=== PATIENT | female | born 1970 | race African-American/Black ===

== ENCOUNTER 2017-03-19 08:59 | Inpatient (IN) | payer OTHER ==
[~2017-03-19] VITALS: Ht 172.7 cm; Wt 62.1 kg
[2017-03-19] VITALS (7 sets, daily range): BP systolic 144–169; BP diastolic 9–110; PULSE 90–116; RESP 16–20; TEMP 96.8–99.3; O2SAT 98–100
--- NOTE | 2017-03-19 08:42 | HHI.HP ---
HPI Chief Complaint severe symptomatic anemia, admit prior to scheduled surgery for transfusion Date Seen: Mar 19, 2017 Time Seen: 10:30 Travel History International Travel<30 Days: No Contact w/Intl Traveler<30Days: No Known Affected Area: No History of Present Illness HPI 46 yo (h/o FT CD in 1995) presents for pre-admit, blood transfusion due to severe symptomatic anemia due to acute blood loss associated with enlarged leiomyomatous uterus and premenopausal menorrhagia. Pt is scheduled for total abdominal hysterectomy (CIRILO) and possible bilateral salpingo-oophorectomy (BSO) tomorrow, Monday03/20/17. Pt's hemoglobin has dropped over past year from 10.5 to 6.1 due to severely heavy bleeding, despite chronic OCP suppression ( although pt is known to be poorly compliant with physician instructions and medication use so unclear if actually taking). Pt has severely heavy painful cycles starting in August 2016. Had previously been seen and managed by me in 2015 with finding of large submucous myoma causing pain and bleeding, I removed myoma hysteroscopically 06/2016 but patient only had relief x 2 months. Since August 2016 pt states cycles "are like a faucet, I can't leave the house, it's interfering with my work, I woak a super pad ever 30 minutes on the heaviest day." Bleeds >14d/month and heavy for >10days. Over past month bleeding has been continuous. Pap negative last year, unable to tolerate endometrial biopsy in office but on office imaging new larger complete submucous myoma visualized. Pt complains of fatigue, bloating, tired all the time. Pt refused exam in office or repeat ultrasound imaging, to re-evaluate uterine size prior to surgery, last office sonogram dated 11/07/16 showed complete submucosal fibroid measuring 3.9 x 3.7 cm, adnexal regions within normal limits at that time. Pain in pelvis cramping midline with radiation to low back, 10/31. Currently bleeding today. History Past Medical History Narrative Medical chronic hypertension severe anemia secondary to acute blood loss (menorrhagia) uterine leiomyomas premenopausal menorrhagia Obstetric History Obstetric History G1 = FT CD @ 38 wks "no fluid, emergency " (1995) Past Surgical History Narrative Surgical cholecystectomy tubal ligation section 1995 hysteroscopy/myomectomy 07/04/2016 (myosure) Family History Narrative Family History hypertensive disorder - mother colon cancer - father heart disease - maternal & paternal grandmother Social History Alcohol Use: No Tobacco Use: No Substance Abuse: No Allergies-Medications (Allergen,Severity, Reaction): Uncoded Allergies: [facility] (Allergy, Severe, 05/21/09) Comments NKDA Home Meds Active Scripts Lisinopril 20 mg (Lisinopril 20 mg) 20 Mg Tab, 20 MG PO BID, #60 6 Refills Prov:Aure Hernandez MD 07/30/12 Metoprolol Tartrate 25 mg (Metoprolol Tartrate 25 mg) 25 Mg Tab, 25 MG PO BID, # 62 6 Refills Prov:Aure Hernandez MD 03/04/12 Reported Medications Miscellaneous (Vitamin B-12 Extended Rel) 1 000 Sub, 1 TAB SL DAILY, TAB 03/10/14 Green Tea (Camillia Sinensis) (Green Tea) 150 Mg Cap, 150 MG PO DAILY, CAP 03/10/14 Garlic (Garlic) Tab, 1 TAB PO DAILY, TAB 03/10/14 Review of Systems General / Constitutional: Other (fatigue), No: Fever, Weight Gain, Chills Eyes: No: Diploplia, Blurred Vision, Visual changes, Pain, Photophobia HENT: No: Headaches, Vertigo, Lightheadedness Cardiovascular: No: Irregular Rhythm, Chest Pain or Discomfort, Palpitations, Tachycardia, Syncope, Varicosities, Edema, Cyanosis Respiratory: No: Cough, Short of Breath, Other Gastrointestinal: Abdominal Pain (cramps), No: Nausea, Vomiting, Diarrhea Genitourinary: Pelvic Pain, Menorrhagia, Vaginal Bleeding (continuous menses), No: Decreased Urinary Output, Oliguria Musculoskeletal: No: Limited ROM, Weakness, Cramping, Edema, Pain Skin: No Rash, No Itching, No Dryness, No Lumps, No Change in Pigmentation, No Change in Nails, No Alopecia, No Lesions Neurologic: Weakness, No: Dizziness, Syncope, Focal Abnormalities, Coordination Problem, Headache, Slurred Speech, Seizures Psychiatric: No: Depression, Suicidal Ideations, Homicidal Ideation Endocrine: No: Heat Intolerance, Cold Intolerance, Polydipsia, Polyuria, Other Physical Exam Narrative GENERAL: Well-nourished, well-developed patient. Overweight. SKIN: Warm and dry. HEAD: Normocephalic and atraumatic. EYES: No scleral icterus. No injection or drainage. ENT: No nasal drainage noted. Mucous membranes pink. Airway patent. NECK: Supple, trachea midline. No JVD. CARDIOVASCULAR: Regular rate and rhythm without murmurs, gallops, or rubs. RESPIRATORY: Breath sounds equal bilaterally. No accessory muscle use. BREASTS: deferred. ABDOMEN/GI: Abdomen soft, TTP above symphysis c/w uterine fundus, bowel sounds present, no rebound, no guarding midline vertical scar from h/o delivery GENITOURINARY: deferred to exam under anesthesia in OR EXTREMITIES: No cyanosis or edema. BACK: Nontender without obvious deformity. No CVA tenderness. NEUROLOGICAL: Awake and alert. Motor and sensory grossly within normal limits. Five out of 5 muscle strength in all muscle groups. Normal speech. Caprini VTE Risk Assessment Caprini VTE Risk Assessment: No/Low Risk (score <= 1) Caprini Risk Assessment Model Point Value = 1 Point Value = 2 Point Value = 3 Point Value = 5 Age 41-60 Minor surgery BMI > 25 kg/m2 Swollen legs Varicose veins or History of unexplained or recurrent spontaneous Oral contraceptives or hormone replacement Sepsis (< 1 month) Serious lung disease, including pneumonia (< 1 month) Abnormal pulmonary function Acute myocardial infarction Congestive heart failure (< 1 month) History of inflammatory bowel disease Medical patient at bed rest Age 61-74 Arthroscopic surgery Major open surgery (> 45 min) Laparoscopic surgery (> 45 min) Malignancy Confined to bed (> 72 hours) Immobilizing plaster cast Central venous access Age >= 75 History of VTE Family history of VTE Factor V Leiden Prothrombin [id number] Lupus anticoagulant Anticardiolipin antibodies Elevated serum homocysteine Heparin-induced thrombocytopenia Other congenital or acquired thrombophilia Stroke (< 1 month) Elective arthroplasty Hip, pelvis, or leg fracture Acute spinal cord injury (< 1 month) Prophylaxis Regimen Total Risk Factor Score Risk Level Prophylaxis Regimen 0-1 Low Early ambulation 2 Moderate Order ONE of the following: *Sequential Compression Device (SCD) *Heparin 5000 units SQ BID 3-4 Higher Order ONE of the following medications: *Heparin 5000 units SQ TID *Enoxaparin/Lovenox 40 mg SQ daily (WT < 150 kg, CrCl > 30 mL/min) *Enoxaparin/Lovenox 30 mg SQ daily (WT < 150 kg, CrCl > 10-29 mL/min) *Enoxaparin/Lovenox 30 mg SQ BID (WT < 150 kg, CrCl > 30 mL/min) AND/OR *Sequential Compression Device (SCD) 5 or more Highest Order ONE of the following medications: *Heparin 5000 units SQ TID (Preferred with Epidurals) *Enoxaparin/Lovenox 40 mg SQ daily (WT < 150 kg, CrCl > 30 mL/min) *Enoxaparin/Lovenox 30 mg SQ daily (WT < 150 kg, CrCl > 10-29 mL/min) *Enoxaparin/Lovenox 30 mg SQ BID (WT < 150 kg, CrCl > 30 mL/min) AND *Sequential Compression Device (SCD) Data Data Vital Signs Reviewed: Yes Assessment/Plan Problem List: (1) Anemia associated with acute blood loss ICD Codes: D62 - Acute posthemorrhagic anemia Status: Acute (2) Premenopausal menorrhagia ICD Codes: N92.4 - Excessive bleeding in the premenopausal period Status: Acute (3) Uterine leiomyoma ICD Codes: D25.9 - Leiomyoma of uterus, unspecified Status: Chronic (4) Enlarged uterus ICD Codes: N85.2 - Hypertrophy of uterus Status: Chronic Assessment and Plan 46 yo admit 1 day prior to scheduled surgery for blood transfusion due to severe acute anemia in setting of premenopausal menorrhagia due to enlarged, leiomyomatous uterus 1) severe anemia: Pt's Hgb has decreased over past 12 months from 10.5 > 6.1, despite continuous OCP suppression pt continues to have severe heavy continuous menses; will crossmatch for 4 units, transfuse 2 units today & have 2 units ready for intraop/postop use if necessary; r/b/a of transfusion d/w pt in office and consents signed on 03/15/17 2) premenopausal menorrhagia/enlarged leiomyomatous uterus: scheduled total abdominal hysterectomy, possible bilateral salpingo-oophorectomy on 03/20/17. Pt to get transfusion today, will be NPO after midnight in preparation for surgery. R/b/a of surgery d/w pt in detail, consents signed, all questions answered 3) mildly elevated creatinine: this is chronic for pt, records reviewed from PCP , stable from last year, 1.06; pt has outpt f/u with PCP for continued care; is chronic hypertensive, does not always take medication as prescribed 4) chronic hypertension: continue home meds & monitor closely while inpt 5) PPX: will plan SCDs while in bed 6) dispo: suspect discharge on POD#1 or 2, surgery scheduled tomorrow 03/20/17 Discharge Planning 1-2 days postop Ayah Hutchison MD Mar 19, 2017 08:42
[~2017-03-19 08:59] MED LIST: GARL500T PO; GREE150C PO; LISI-363 PO; METO25 PO; VITA100020 SL
[2017-03-19] MEDS ORDERED: LACTATED RINGER'S 1000 ML INJ 1,000 ML IV SCH (12:00)
[2017-03-19] MEDS ORDERED: ceFAZolin 1,000 MG/NS 100 ML IV SCH ×2 (20:00)
[2017-03-19 22:54] LABS: BLOOD, URINE SMALL (NEG); COMMENT (UR) CULT NOT INDICATED; CULTURE IF INDICATED CULT NOT INDICATED; GLUCOSE,URINE NEG (NEG); HYALINE CAST, URINE 1 /lpf (RARE); KETONE, URINE NEG (NEG); MUCUS URINE FEW /lpf (OCC); NITRITE,URINE NEG (NEG); SQUAMOUS EPITHELIAL CELL URINE 10 /hpf (0-5); TRANSITIONAL EPI CELLS, URINE 1 /hpf; URINE COLOR YELLOW (YELLW/STRAW)
[2017-03-20] VITALS: BP 149/97; PULSE 97; RESP 18; TEMP 98.3; O2SAT 97
[2017-03-20 04:00] VITALS: BP 152/92; PULSE 87; RESP 18; TEMP 98.5; O2SAT 95
[2017-03-20 06:07] LABS: AUTOMATED NEUTROPHIL # 4.2 TH/MM3 (1.8-7.7); BASOPHIL # 0.1 TH/MM3 (0-0.2); EOSINOPHIL # 0.2 TH/MM3 (0-0.4); EOSINOPHIL % 3.4 % (0.0-4.0); HEMATOCRIT 27.8 % (35.0-46.0); HEMO FLAGS DIFF FINAL; LYMPH % 24.3 % (9.0-44.0); LYMPHOCYTE # 1.6 TH/MM3 (1.0-4.8); MEAN CELL VOLUME 77.1 FL (80.0-100.0); MEAN CORPUSCULAR HEMOGLOBIN 23.1 PG (27.0-34.0); MONO % 6.8 % (0.0-8.0); NEUT % 64.5 % (16.0-70.0); PLATELET COUNT 213 TH/MM3 (150-450); RED CELL DISTRIBUTION WIDTH 24.6 % (11.6-17.2); WHITE BLOOD COUNT 6.5 TH/MM3 (4.0-11.0)
[2017-03-20 06:18] LABS: MEAN CORPUSCULAR HGB CONC 29.9 % (32.0-36.0)
[2017-03-20] MEDS ORDERED: SODIUM CHLORID 0.9% 500 ML IV PRN (06:30)
[2017-03-20] MEDS ORDERED: LACTATED RINGER'S 1000 ML IV PRN (06:30)
[2017-03-20] MEDS ORDERED: CHLORHEXIDINE GLUCONATE 2 % 1 PACK (2 CLOTHS) TOPICAL PRN (06:30)
[2017-03-20] MEDS ORDERED: POVIDONE IODINE 5% (ANTISEPSIS KIT) 4 APPLICATIONS EACH NARE PRN (06:30)
[2017-03-20 06:40] LABS: ALT (GPT) 16 U/L (10-53); ANION GAP 8 MEQ/L (5-15); AST (GOT) 11 U/L (15-37); BICARBONATE 25.4 MEQ/L (21.0-32.0); BLOOD UREA NITROGEN 9 MG/DL (7-18); CHLORIDE 109 MEQ/L (98-107); GLOMERULAR FILTRATION RATE 76 ML/MIN (>89); POTASSIUM 3.2 MEQ/L (3.5-5.1); SODIUM (NA) 142 MEQ/L (136-145)
[2017-03-20 06:44] LABS: ALKALINE PHOSPHATASE 37 U/L (45-117); BETA HCG QUANT LESS THAN 1 MIU/ML (0-5); TOTAL BILIRUBIN ADULT 0.3 MG/DL (0.2-1.0)
[2017-03-20] MEDS ORDERED: ceFAZolin 2 GM PREMIX 50 ML ONE (07:32)
[2017-03-20] MEDS ORDERED: SODIUM CHLORIDE 0.9% 20 ML VIAL ONE (07:32)
[2017-03-20] MEDS ORDERED: GELATIN POWDER 1 GM PACKET ONE (07:32)
[2017-03-20] MEDS ORDERED: MICROFIBRILLAR COLLAGEN HEMOSTAT 1 GM PKT ONE (07:32)
[2017-03-20] MEDS ORDERED: VASOPRESSIN 20 UNITS/ML VIAL (IVTITR) ONE (07:32)
[2017-03-20] MEDS ORDERED: ceFAZolin 2 GM PREMIX 50 ML IV SCH (07:45)
[2017-03-20] MEDS ORDERED: ACETAMINOPHEN 1000 MG/100 ML 100 ML IV ONE (07:46)
[2017-03-20] MEDS ORDERED: MIDAZOLAM HCL 2 MG/2 ML VIAL ONE (07:47)
[2017-03-20] MEDS: LACTATED RINGER'S 1000 ML INJ 1,000 ML IV SCH ×2 (09:49→20:25)
[2017-03-20] MEDS ORDERED: DO NOT ADM ANY ANTICOAGULANT DRUGS PRN (09:58)
[2017-03-20] MEDS ORDERED: MORPHINE SULFATE 30 MG/30 ML PCA IV SCH (10:00)
[2017-03-20] MEDS ORDERED: ZOLPIDEM TARTRATE 5 MG TAB PO PRN (10:00)
[2017-03-20] MEDS ORDERED: diphenhydrAMINE HCL 50 MG/ML VIAL IV PRN (10:00)
[2017-03-20] MEDS ORDERED: LORazepam 0.5 MG TAB PO PRN (10:00)
[2017-03-20] MEDS ORDERED: NALOXONE HCL 0.4 MG/ML AMP IV PRN (10:00)
[2017-03-20] MEDS ORDERED: ONDANSETRON HCL 4 MG/2 ML VIAL IV PUSH PRN (10:00)
[2017-03-20] MEDS ORDERED: oxyCODONE/ACETAMINOPHEN 5 MG/325 MG TAB PO PRN (10:00)
[2017-03-20] MEDS: SODIUM CHLORIDE 0.9% FLUSH 10 ML FLUSH IV FLUSH SCH ×2 (10:00→20:42)
[2017-03-20] MEDS ORDERED: SODIUM CHLORIDE 0.9% FLUSH 10 ML FLUSH IV FLUSH PRN (10:00)
[2017-03-20] MEDS ORDERED: *morphine SULFATE 8 MG/ML PERIprocedure ONLY ONE (10:09)
--- NOTE | 2017-03-20 10:12 | HHI.PR ---
Immediate Post Op Note Procedure Date: Mar 20, 2017 Pre Op Diagnosis: (1) Anemia associated with acute blood loss (2) Premenopausal menorrhagia (3) Enlarged uterus (4) Uterine leiomyoma Post Op Diagnosis: (1) S/P total abdominal hysterectomy (2) Anemia associated with acute blood loss (3) Premenopausal menorrhagia (4) Enlarged uterus (5) Uterine leiomyoma Surgeon: Ayah Hutchison Director Of Income Tax(s): [facility] staff Procedure: exam under anesthesia, total abdominal hysterectomy, right salpingectomy Findings: enlarged 10-12wk uterus, myoma prolapsing through cervix, normal bilateral ovaries normal right fallopian tube segment, no visualized left fallopian tube; moderate adhesions of bladder to lower uterine segment c/w history of ; mild powder burn type lesions on uterus near left adnexa suspect endometriosis, mild Complications: none Specimen(s) removed: uterus, cervix, right fallopian tube Estimated blood loss: 400 mL Anesthesia: General Drains: None Fluids: 1600mL IVF Patient to: PACU Patient Condition: Good Ayah Hutchison MD Mar 20, 2017 10:12
[2017-03-20] MEDS: KETOROLAC TROMETHAMINE 30 MG/ML (IVP) VIAL IV PUSH SCH ×2 (10:44→17:45)
[2017-03-20] MEDS ORDERED: NEOSTIGMINE 3 MG/3 ML SYR IV ONE (12:00)
[2017-03-20] MEDS ORDERED: amLODIPine BESYLATE 5 MG TAB PO ONE (12:00)
[2017-03-20] MEDS ORDERED: ONDANSETRON HCL 4 MG/2 ML VIAL IV PUSH ONE (12:00)
[2017-03-20] MEDS ORDERED: PHENYLEPH/NS 1000 MCG/10 ML SYR IV ONE (12:00)
[2017-03-20] MEDS ORDERED: LACTATED RINGER'S 1000 ML INJ 1,000 ML IV ONE (12:00)
[2017-03-20] MEDS ORDERED: fentaNYL CITRATE 250 MCG/5 ML AMP IV ONE (12:00)
[2017-03-20] MEDS ORDERED: PROPOFOL 200 MG/20 ML AMP IV ONE (12:00)
[2017-03-20] MEDS ORDERED: HYDROCHLOROTHIAZIDE 25 MG TAB PO ONE (12:00)
[2017-03-20 12:45] VITALS: BP 132/84; PULSE 93; RESP 16; TEMP 98.6; O2SAT 99
[2017-03-20] MEDS: PCA - TOTAL MG MORPHINE DELIVERED PER SHIFT SCH ×2 (13:46→22:00)
[2017-03-20] MEDS: ACETAMINOPHEN 1000 MG/100 ML VIAL IV SCH ×2 (13:46→20:26)
[2017-03-20 14:20] VITALS: O2SAT 98
[2017-03-20 15:45] VITALS: BP 137/86; PULSE 90; RESP 20; TEMP 98.6; O2SAT 100
[2017-03-20 17:22] LABS: HEMATOCRIT 24.7 % (35.0-46.0); REVIEW FLAG FINAL
[2017-03-20 20:00] VITALS: BP 141/77; PULSE 91; RESP 18; TEMP 96.1; O2SAT 100
[2017-03-20] MEDS: DOCUSATE SODIUM 50 MG/SENNA 8.6 MG TAB PO SCH (20:30)
[2017-03-21] VITALS: BP 140/93; PULSE 83; RESP 18; TEMP 98.4; O2SAT 96
[2017-03-21] MEDS: KETOROLAC TROMETHAMINE 30 MG/ML (IVP) VIAL IV PUSH SCH ×2 (00:09→06:29)
[2017-03-21] MEDS: ACETAMINOPHEN 1000 MG/100 ML VIAL IV SCH ×2 (02:40→08:47)
[2017-03-21 04:00] VITALS: BP 140/94; PULSE 94; RESP 18; TEMP 98; O2SAT 93
[2017-03-21] MEDS ORDERED: IBUP-232 PO ×2 (05:05→05:21)
[2017-03-21] MEDS ORDERED: SENN1TAB PO ×2 (05:05→05:21)
[2017-03-21] MEDS ORDERED: OXYC1TAB63 PO ×2 (05:05→05:21)
--- NOTE | 2017-03-21 05:12 | HHI.DS ---
Discharge Summary Admission Date Mar 19, 2017 at 08:59 Discharge Date: Mar 21, 2017 Admitting Diagnosis severe symptomatic anemia of acute blood loss enlarged leiomyomatous uterus premenopausal menorrhagia (1) S/P total abdominal hysterectomy Diagnosis: Principal ICD Codes: Z90.710 - Acquired absence of both cervix and uterus (2) Anemia associated with acute blood loss Diagnosis: Principal ICD Codes: D62 - Acute posthemorrhagic anemia Status: Acute (3) Premenopausal menorrhagia Diagnosis: Principal ICD Codes: N92.4 - Excessive bleeding in the premenopausal period Status: Acute (4) Enlarged uterus Diagnosis: Principal ICD Codes: N85.2 - Hypertrophy of uterus Status: Chronic (5) Uterine leiomyoma Diagnosis: Principal ICD Codes: D25.9 - Leiomyoma of uterus, unspecified Status: Chronic Procedures exam under anesthesia, total abdominal hysterectomy, right salpingectomy Brief History Pt is a 46 yo who has a history over the past few years of increasingly heavy painful menses. Had history of complete submucous myoma removed hysteroscopically in 2015, had 2 regular cycles, then in August 2016 again severely heavy painful cycles resumed. Enlarged fibroid uterus noted on ultrasound, pt failed continuous hormonal suppression, had severe symptomatic anemia, and desired definitive management with surgery. She was scheduled for procedures as listed. CBC/BMP: 03/20/17 1705 03/20/17 0526 Significant Findings Laboratory Tests Test 03/19/17 20:15 03/20/17 05:26 03/20/17 17:05 Urine Turbidity HAZY (CLEAR) Urine Protein 100 mg/dL (NEG-TRACE) Urine Occult Blood SMALL (NEG) Urine Leukocyte Esterase SMALL (NEG) Urine WBC 8 /hpf (0-5) Urine Mucus FEW /lpf (OCC) Red Blood Count 3.60 MIL/MM3 (4.00-5.30) Hemoglobin 8.3 GM/DL (11.6-15.3) 7.3 GM/DL (11.6-15.3) Hematocrit 27.8 % (35.0-46.0) 24.7 % (35.0-46.0) Mean Corpuscular Volume 77.1 FL (80.0-100.0) Mean Corpuscular Hemoglobin 23.1 PG (27.0-34.0) Mean Corpuscular Hemoglobin Concent 29.9 % (32.0-36.0) Red Cell Distribution Width 24.6 % (11.6-17.2) Albumin 2.7 GM/DL (3.4-5.0) Calcium Level 8.2 MG/DL (8.5-10.1) Alkaline Phosphatase 37 U/L (45-117) Aspartate Amino Transf (AST/SGOT) 11 U/L (15-37) Potassium Level 3.2 MEQ/L (3.5-5.1) Chloride Level 109 MEQ/L (98-107) Estimat Glomerular Filtration Rate 76 ML/MIN (>89) Hospital Course Due to severe anemia with Hgb 6.1, pt was pre-admitted Monday03/19/17 for transfusion, received 2 units PRBCs in preparation for surgery. On day of surgery Hgb increased to 8.3. Pt had uncomplicated intraoperative course. Pt had a history of bilateral tubal ligation and at time of surgery no left tube was identified. Remaining portion of right fallopian tube was removed with uterus and cervix. On POD#0 pt's pain was controlled on IV medications, on POD# 1 pt was transitioned to oral medications. Once pt's pain was adequately controlled, she was ambulating, voiding, tolerating diet, she was discharged to home with office f/u in 1-2 wks. Pt Condition on Discharge: Good Discharge Disposition: Discharge Home Discharge Instructions DIET: Follow Instructions for: Heart Healthy Diet Activities you can perform: Non Weight Bearing, Shower Only-No Bath, Pelvic Rest Activities to avoid: Strenuous Activity, Driving, Sexual Activity Additional Activity Instructio: no driving x 2 weeks, no lifting over 10#, avoid stairs/strenuous activity Ayah Hutchison MD Mar 21, 2017 05:12
--- NOTE | 2017-03-21 05:47 | HHI.PR ---
Subjective Remarks Doing well, pain is controlled on scheduled IV meds, not yet eating, smith in place, not yet out of bed. Pain 3/10 painscale "just like after I had my years ago." Wants smith out, bothering her. Objective Vital Signs Vital Signs Date Time Temp Pulse Resp B/P (MAP) Pulse Ox O2 Delivery O2 Flow Rate FiO2 03/21/17 04:00 98.0 94 18 140/94 (109) 93 03/21/17 00:00 98.4 83 18 140/93 (109) 96 03/20/17 22:00 18 03/20/17 20:00 96.1 91 18 141/77 (98) 100 03/20/17 15:45 98.6 90 20 137/86 (103) 100 03/20/17 14:20 98 Nasal Cannula 1.00 03/20/17 13:46 16 03/20/17 12:45 98.6 93 16 132/84 (100) 99 03/20/17 11:15 98.4 90 14 122/68 (86) 100 Nasal Cannula 2 03/20/17 11:00 90 14 121/68 (85) 100 Nasal Cannula 2 03/20/17 10:47 14 03/20/17 10:45 87 14 119/66 (83) 100 Nasal Cannula 3 03/20/17 10:30 86 14 117/64 (81) 100 Nasal Cannula 3 03/20/17 10:15 87 14 114/59 (77) 98 Nasal Cannula 3 03/20/17 10:00 98.4 90 14 118/59 (78) 100 Nasal Cannula 4 I/O 03/20/17 03/20/17 03/20/17 03/21/17 03/21/17 03/21/17 07:00 15:00 23:00 07:00 15:00 23:00 Intake Total 1850 ml 2384 ml Output Total 550 ml 525 ml 150 ml Balance 1300 ml 1859 ml -150 ml Intake Oral 600 ml IV Total 250 ml 1784 ml Other 1600 ml Output Urine Total 150 ml 525 ml 150 ml Estimated Blood Loss 400 ml # Sanitary Pads 1 Pads 1 Pads Result Diagram: 03/20/17 1705 03/20/17 0526 Objective Remarks Chest is clear, regular rate and rhythm. Abdomen is soft and non-distended. +BS Bandage is clean and dry. Ext no CCE. SCDs in place. A/P Assessment and Plan Post Op Day 1 transition from IV to po pain medication advance diet remove smith ambulate remove bandage will recheck later today for possible discharge if meeting criteria not yet meeting d/c criteria Ayah Hutchison MD Mar 21, 2017 05:47
[2017-03-21] MEDS: LACTATED RINGER'S 1000 ML INJ 1,000 ML IV SCH ×2 (05:49→15:38)
[2017-03-21] MEDS: PCA - TOTAL MG MORPHINE DELIVERED PER SHIFT SCH ×2 (06:37→09:55)
[2017-03-21] MEDS: SODIUM CHLORIDE 0.9% FLUSH 10 ML FLUSH IV FLUSH SCH (07:50)
[2017-03-21 08:46] LABS: AUTOMATED NEUTROPHIL # 9.3 TH/MM3 (1.8-7.7); BASOPHIL # 0.1 TH/MM3 (0-0.2); BASOPHIL % 0.7 % (0.0-2.0); EOSINOPHIL # 0.1 TH/MM3 (0-0.4); EOSINOPHIL % 0.7 % (0.0-4.0); HEMATOCRIT 22.9 % (35.0-46.0); LYMPH % 11.4 % (9.0-44.0); LYMPHOCYTE # 1.3 TH/MM3 (1.0-4.8); MEAN CELL VOLUME 77.6 FL (80.0-100.0); MEAN CORPUSCULAR HEMOGLOBIN 23.7 PG (27.0-34.0); MEAN CORPUSCULAR HGB CONC 30.6 % (32.0-36.0); MONO % 4.9 % (0.0-8.0); NEUT % 82.3 % (16.0-70.0); PLATELET COUNT 144 TH/MM3 (150-450); RED BLOOD COUNT 2.96 MIL/MM3 (4.00-5.30); RED CELL DISTRIBUTION WIDTH 25.6 % (11.6-17.2); WHITE BLOOD COUNT 11.3 TH/MM3 (4.0-11.0)
[2017-03-21] MEDS: DOCUSATE SODIUM 50 MG/SENNA 8.6 MG TAB PO SCH (08:47)
[2017-03-21 08:57] LABS: HEMO FLAGS AUTO DIFF
[2017-03-21] MEDS ORDERED: amLODIPine BESYLATE 5 MG TAB PO SCH (09:00)
[2017-03-21] MEDS ORDERED: HYDROCHLOROTHIAZIDE 25 MG TAB PO SCH (09:00)
[2017-03-21 09:49] LABS: ACANTHOCYTES OCC (NORMAL); KERATOCYTES OCC (NORMAL)
[2017-03-21 09:50] LABS: OVALOCYTES 1+ (NORMAL); SCAN/DIFF AUTO DIFF CONFIRMED
[2017-03-21] MEDS: IBUPROFEN 600 MG TAB PO SCH ×2 (09:55→15:37)
[2017-03-21] MEDS: oxyCODONE/ACETAMINOPHEN 10 MG/325 MG TAB PO PRN ×2 (09:55→14:12)
[2017-03-21] MEDS ORDERED: IBUPROFEN 600 MG TAB PO PRN (10:00)
[2017-03-21 12:00] VITALS: BP 152/94; PULSE 99; RESP 20; TEMP 99; O2SAT 94
--- NOTE | 2017-03-21 14:04 | MP ---
cc: [facility] DATE OF SURGERY 03/19/2017 PREOPERATIVE DIAGNOSES 1. Severe symptomatic anemia. 2. Premenopausal menorrhagia. 3. Enlarged fibroid uterus. 4. Failed medical management. POSTOPERATIVE DIAGNOSES 1. Severe symptomatic anemia. 2. Premenopausal menorrhagia. 3. Enlarged fibroid uterus. 4. Failed medical management. 5. Postop day #0. INDICATIONS Matilda Wolf is a 46-year-old 1, para 1 who has a history of worsening heavier, more painful menstrual cycles over the past few years. She had previously had a hysteroscopic removal of a submucous myoma last year in 2015 but she has reformation of a new submucous myoma measuring approximately 4 cm. Around August she was started on daily continuous hormonal suppression. This did not help quell her bleeding and the patient had severe menorrhagia with decrease in hemoglobin from a level of 10.5 to 6.1 over an 8-12 month period. She desired definitive surgical management. PROCEDURE PERFORMED 1. Exam under anesthesia. 2. Total abdominal hysterectomy with right salpingectomy. Left tube was not found at the time of surgery. SURGEON Ayah Hutchison MD [employer] [facility] staff ANESTHESIA General endotracheal COMPLICATIONS None. COUNTS Sponge, lap, instrument, needle correct x 2 at the conclusion of the procedure. ESTIMATED BLOOD LOSS 400 mL. URINE OUTPUT 50 mL. Clear urine draining in the Lambert bag at the end of the procedure. FLUID REPLACEMENT 1600 mL of lactated Ringer's. PROPHYLAXIS SCDs were on and functioning throughout the entire case. Ancef 2 grams IV was given preoperatively. SPECIMEN Uterus, cervix, right fallopian tube. INTRAOPERATIVE FINDINGS A narrow vaginal introitus with prominent spines. The cervix was approximately 3 cm, smooth with palpable edge of suspected prolapsing myoma. On intraabdominal survey the uterus was enlarged, approximately 10-12 weeks' size. Normal bilateral ovaries. The left fallopian tube was not visualized. A segment of right fallopian tube was visualized and removed. The patient does have history of previous tubal ligation. Small powder burn lesions near the left adnexa, suspect mild endometriosis. Moderate scar tissue at the bladder to the lower uterine segment consistent with a history of previous . PROCEDURE IN DETAIL After reviewing the informed consent, the patient was taken to the operating suite where a time-out was performed to identify the patient, planned procedure and any known allergies to drugs or drug products. The patient was then placed in dorsal supine position and general anesthesia was administered without difficulty and found to be adequate. Exam under anesthesia was then performed with the results as above. The abdomen and perineum were then prepped and draped in the normal sterile fashion. A Lambert catheter was placed using sterile technique. Attention was turned abdominally where a Pfannenstiel type skin incision was made with a scalpel, carried down to the underlying layer of fascia with the Bovie. The fascia was incised in the midline. The incision was extended laterally by sharp dissection using Coppola scissors. The superior aspect of the fascial incision was elevated with Suni clamps. The rectus muscles were dissected off sharply with Coppola scissors. The Kochers were then moved inferiorly on the fascia and rectus muscles were again dissected off sharply with Coppola scissors. The peritoneum was identified after the rectus muscles were in the midline. The perineum was entered bluntly. Incision was extended superiorly and inferiorly with good visualization of intraabdominal contents. Sterile moist lap sponges were used to pack the bowel out of the operative field. An O'Arron-O'Quezada self-retaining retractor was then placed. Two curved Mague clamps were placed at the bilateral cornua. First the right round ligament was elevated, isolated, doubly suture ligated and divided with 0- Vicryl. The mesosalpinx was opened allowing development of the bladder flap on that side. Clear space was then found in the mesosalpinx beneath the right infundibulopelvic ligament. This was entered sharply and using Enseal device the right infundibulopelvic ligament was clamped, sealed and cut with excellent hemostasis. The remainder of the right fallopian tube was elevated. Enseal was again used to clamp, seal and cut this pedicle with excellent hemostasis. Attention was then turned to the left round ligament which was doubly suture ligated with 0-Vicryl, divided and the mesosalpinx opened toward the lower uterine segment to allow development of a bladder flap. Again a clear space was found in the mesosalpinx beneath the left infundibulopelvic ligament. This space was entered sharply and Enseal device was used to clamp, seal and ligate this pedicle leaving the ovary on its blood supply, from the uterus. Using the Enseal device, the uterine blood supply was secured down to the level of the uterine arteries bilaterally with excellent hemostasis. Curved Mague clamps were then used to bilaterally clamp beneath the level of the uterine arteries with a clamp, cut and suture ligating technique bilaterally using 0-Vicryl. Two additional clamps were then placed beneath the uterine cervix. The specimen was then successfully amputated and passed off the field to be evaluated by pathology. Using 0 Vicryl suture these pedicles were doubly suture ligated with excellent hemostasis and the vaginal cuff was run with a #1 Vicryl and doubly reinforced with excellent hemostasis. Irrigation with suction was performed. There was some mild oozing of the bladder flap. Evicel was used to successfully tamponade this area with excellent hemostasis. Excellent hemostasis was noted. The self-retaining retractor and sterile moist laps were removed. The peritoneum was closed in a running layer with 2-0 chromic. The fascia was closed in a running layer of #1 Vicryl. The subcutaneous tissue was irrigated copiously with warm sterile saline and a series of interrupted stitches using 2-0 chromic was used to close the subcutaneous space. The skin was cleaned and dried and closed with 4-0 Monocryl in a subcuticular fashion. Steri-Strips and a Primapore dressing were placed. The procedure concluded at this point The patient was awoken from anesthesia without complication and tolerated the procedure well. Estimated length of stay is one to two postoperative days. The patient will be admitted inpatient status. DISPOSITION Estimated length of stay is 1-2 postoperative days. MD LEONILA Frazier/ADALBERTO /9:56 AM /1:21 PM [place]
== END 2017-03-21 16:11 | disposition home or self-care (01) | DRG 742 ==
LOC: NEPFCDU 08:59 → OBSVTOIN 08:59 → NEPFCDU 09:21 → HOCA 21:02
PROVIDERS: ADMIT Obstetrics & Gynecology; ATTEND Obstetrics & Gynecology
PROC: 0UT90ZZ Resection of Uterus, Open Approach (ICD-10-PCS; principal; 2017-03-19)
PROC: 0UTC0ZZ Resection of Cervix, Open Approach (ICD-10-PCS; 2017-03-19)
PROC: 0UT50ZZ Resection of Right Fallopian Tube, Open Approach (ICD-10-PCS; 2017-03-19)
PROC: 30233N1 Transfusion of Nonautologous Red Blood Cells into Peripheral Vein, Percutaneous Approach (ICD-10-PCS; 2017-03-19)
DX: N92.4 Excessive bleeding in the premenopausal period (principal); D62 Acute posthemorrhagic anemia; I10 Essential (primary) hypertension; D25.9 Leiomyoma of uterus, unspecified
CPT/HCPCS: 36430; 80053; 81001; 82565; 84702; 85014; 85018; 85025; 86850; 86900; 86901; 86920; 88307; J0131; J0690; J1885; J2250; J2270; J2370; J2405; J2710; J3010; J7120; P9016